=== PATIENT | female | born 1935 | race Asian ===

== ENCOUNTER 2016-12-06 07:07 | Observation (INO) | payer MEDICARE, OTHER ==
[~2016-12-06] VITALS: Ht 144.8 cm; Wt 43.2 kg
[~2016-12-06 07:07] MED LIST: AMLO2.5T PO; PRED5 PO
[2016-12-06] MEDS ORDERED: CeFAZolin 2 GM/DEXTROSE 50 ML IV ONE ×2 (07:19→07:30)
[2016-12-06] MEDS ORDERED: RINGERS SOLUTION,LACTATED 1,000 ML IV ONE ×2 (07:19→07:30)
[2016-12-06 07:57] LABS: HEMATOCRIT 46.9 % (36-46); HEMOGLOBIN 15.3 g/dL (12.0-16.0); MEAN CORPUSCULAR HEMOGLOBIN 28.2 pg (26.0-34.0); MEAN CORPUSCULAR HGB CONC 32.5 G/dL (31.0-37.0); MEAN CORPUSCULAR VOLUME 87 fL (80-100); PLATELET COUNT (AUTO) 296 K/uL (150-450); RED BLOOD CELL COUNT(AUTO) 5.41 MIL/uL (4.00-5.20); RED CELL DISTRIBUTION WIDTH 15.3 % (11.5-14.5); WHITE BLOOD COUNT (AUTO) 8.5 K/uL (4.5-11.0)
[2016-12-06 08:03] LABS: CALCIUM, TOTAL 9.6 mg/dL (8.8-10.5); CREATININE 1.17 mg/dL (0.60-1.30)
[2016-12-06 08:04] LABS: INR 0.9 (0.9-1.1); PROTHROMBIN TIME 9.6 SEC (9.4-11.6)
[2016-12-06 08:08] LABS: BILIRUBIN,TOTAL 0.4 mg/dL (0.1-1.0); TOTAL PROTEIN, SERUM 8.9 g/dL (6.4-8.2)
[2016-12-06 08:15] LABS: BAND NEUTROPHILS % (MANUAL) 11 % (1-5); LYMPHOCYTES % (MANUAL) 31 % (22-44); RBC MORPHOLOGY COMMENT ABNORMAL RBC MORPH; TOTAL CELLS COUNTED 100
[2016-12-06] MEDS ORDERED: BUPIVACAINE 0.25%/EPI 1:200,000/PF 10 ML VIAL ONE ×3 (08:43→09:17)
[2016-12-06] MEDS ORDERED: IOHEXOL 240 MG/ML 20 ML VIAL ONE ×2 (08:43→08:44)
[2016-12-06] MEDS ORDERED: MAG HYDROX/AL HYDROX/SIMETH 30 ML SUSP UDCUP PO PRN (09:00)
[2016-12-06] MEDS ORDERED: BENZOCAINE/MENTHOL LOZENGE [8 LOZENGES/PACKET] PO PRN (09:00)
[2016-12-06] MEDS ORDERED: DOCUSATE SODIUM 100 MG CAPSULE PO SCH (09:00)
[2016-12-06] MEDS ORDERED: ZOLPIDEM TARTRATE 10 MG TABLET PO PRN (09:00)
[2016-12-06] MEDS ORDERED: DiphenhydrAMINE HCL 50 MG/ML VIAL IVP PRN (09:00)
[2016-12-06] MEDS ORDERED: DEXAMETHASONE SOD PHOS 4 MG/ML VIAL IVP PRN (09:00)
[2016-12-06] MEDS ORDERED: DOCUSATE SODIUM 100 MG CAPSULE PO ONE (10:00)
[2016-12-06] MEDS ORDERED: FentaNYL CITRATE-PF 100 MCG/2 ML VIAL IVP PRN (10:00)
[2016-12-06] MEDS ORDERED: MEPERIDINE-PF 25 MG/ML SYRINGE IVP PRN (10:00)
[2016-12-06] MEDS ORDERED: ACETAMINOPHEN 1000 MG/ISO-OSM 100 ML IV SCH (10:00)
[2016-12-06] MEDS ORDERED: MORPHINE SULFATE 2 MG/ML SYRINGE IVP PRN (10:00)
[2016-12-06 11:16] VITALS: BP 151/86
[2016-12-06] MEDS ORDERED: PNEUMOCOCCAL VACCINE POLYVALENT 0.5 ML VIAL [PPSV23] IM ONE (12:45)
[2016-12-06] MEDS ORDERED: PROMETHAZINE HCL 25 MG/ML VIAL IM ONE (13:44)
[2016-12-06] MEDS ORDERED: FentaNYL CITRATE-PF 100 MCG/2 ML VIAL IVP ONE (15:15)
[2016-12-06] MEDS ORDERED: ROCURONIUM BROMIDE 10 MG/ML 5 ML VIAL IVP ONE (15:15)
[2016-12-06] MEDS ORDERED: LIDOCAINE HCL/PF 2% 5 ML VIAL INJ ONE (15:15)
[2016-12-06] MEDS ORDERED: SUCCINYLCHOLINE CHLORIDE 20 MG/ML 10 ML VIAL IVP ONE (15:15)
[2016-12-06] MEDS ORDERED: 0.9% SODIUM CHLORIDE 10 ML VIAL IVP ONE (15:15)
[2016-12-06] MEDS ORDERED: PROPOFOL 1% 20 ML VIAL IVP ONE (15:15)
[2016-12-06] MEDS ORDERED: EPHEDrine SULFATE 50 MG/ML VIAL IM ONE (15:15)
[2016-12-06] MEDS ORDERED: OXYGEN THERAPY IH SCH (20:00)
== END 2016-12-06 15:16 | disposition home or self-care (01) ==
LOC: 4E 07:07 → INTOOBSV 07:07
PROVIDERS: ADMIT Orthopaedic Surgery Orthopaedic Surgery of the Spine; ATTEND Orthopaedic Surgery Orthopaedic Surgery of the Spine
DX: S32.029A Unspecified fracture of second lumbar vertebra, initial encounter for closed fracture (principal); M54.9 Dorsalgia, unspecified; X58.XXXA Exposure to other specified factors, initial encounter; Y93.89 Activity, other specified; Y99.8 Other external cause status; M81.0 Age-related osteoporosis without current pathological fracture; I10 Essential (primary) hypertension
CPT/HCPCS: 22514; 36415; 80053; 85025; 85610; 85730; 87081; 93005; 96372; 96374; 96375; 97165; 97535; C1713; G0378; G8987; G8988; J0330; J0690; J1100; J2270; J2550; J2704; J3010; J3490 ×4; J7120; Q9966